=== PATIENT | male | born 1950 | race Caucasian/White ===

== ENCOUNTER 2022-09-11 20:05 | Emergency (ER) | payer OTHER, MEDICARE ==
[2022-09-11] MEDS ORDERED: Sodium Chloride 0.9% 10 ML Syringe FLUSH PRN (20:35)
[2022-09-11] MEDS ORDERED: Amoxicillin/Clavulanate K 875-125 MG Tab PO ONE (20:36)
[2022-09-11 21:12] LABS: BASOPHILS PERCENT AUTO 0.4 % (0.3-3.8); BLOOD UREA NITROGEN,BUN 13 mg/dL (7-18); CARBON DIOXIDE,CO2 27 mmol/L (21-32); CHLORIDE,CL 105 mmol/L (100-110); EOSINOPHILS ABSOLUTE AUTO 0.3 x10-3/uL (0.0-0.6); EOSINOPHILS PERCENT AUTO 6.1 % (0.1-6.8); ESTIMATED GFR 79 mL/min (>60); GLUCOSE RANDOM 90 mg/dL (80-116); HEMATOCRIT 41.2 % (38.3-50.1); HEMOGLOBIN 13.9 g/dL (12.9-17.7); LYMPHOCYTES ABSOLUTE AUTO 1.6 x10-3/uL (0.5-4.5); LYMPHOCYTES PERCENT AUTO 27.9 % (15.8-45.3); MEAN CORPUSCULAR HEMOGLOBIN 30.4 pg (27.0-33.3); MEAN CORPUSCULAR HGB CONC 33.8 g/dL (28.7-35.3); MEAN PLATELET VOLUME 7.5 fL (6.7-11.0); MONOCYTES ABSOLUTE AUTO 0.7 x10-3/uL (0.0-1.2); MONOCYTES PERCENT AUTO 12.3 % (5.5-15.2); NEUTROPHILS ABSOLUTE AUTO 3.1 x10-3/uL (1.7-6.9); NEUTROPHILS PERCENT AUTO 53.3 % (40.3-71.8); PLATELET COUNT,PLT 168 x10(3)uL (117-477); POTASSIUM,K 3.4 mmol/L (3.5-5.3); RED BLOOD CELL COUNT 4.57 x10(6)uL (3.90-5.90); RED CELL DISTRIBUTION WIDTH 13.3 % (12.4-15.0); SODIUM,NA 141 mmol/L (135-145); WHITE BLOOD CELL COUNT,WBC 5.7 x10-3/uL (3.2-10.1)
[2022-09-11 21:23] LABS: A/G RATIO 1.1; ALANINE AMINOTRANSFERASE,ALT 25 U/L (12-36); ALBUMIN 3.9 g/dL (3.2-4.6); ALKALINE PHOSPHATASE 88 IU/L (56-112); AMYLASE 21 U/L (25-115); ASPARTATE AMNIOTRANSFERASE,AST 26 IU/L (5-25); BILIRUBIN TOTAL 1.2 mg/dL (0.1-1.3); PROTEIN TOTAL,TP 7.4 g/dL (6.0-8.0)
[2022-09-11 21:30] LABS: APPEARANCE,URINE CLEAR (CLEAR); BILIRUBIN,URINE SMALL (NEGATIVE); COLOR,URINE YELLOW (YELLOW); GLUCOSE,URINE NORMAL (NORMAL); KETONES,URINE 15 mg/dL (NEGATIVE); LEUKOCYTE ESTERASE,URINE NEGATIVE (NEGATIVE); NITRITE,URINE NEGATIVE (NEGATIVE); OCCULT BLOOD,URINE MODERATE (NEGATIVE); PROTEIN,URINE NEGATIVE (NEGATIVE); UROBILINOGEN,URINE 1 mg/dL (NEGATIVE)
[2022-09-11 21:31] LABS: BACTERIA,URINE RARE (NS); MUCUS,URINE MODERATE (NS); RBC,URINE 0-5 (0-5); SQUAMOUS EPITHELIAL CELLS,UR OCCASIONAL (NS,R,O); WBC,URINE 0-5 (0-5)
[2022-09-11] MEDS ORDERED: Iopamidol 755 Mg/ML 100 ML Bottle IV ONE (21:38)
[2022-09-11] MEDS ORDERED: Sodium Chloride 0.9% 1,000 ML IV SCH (21:45)
== END 2022-09-11 23:15 | disposition home or self-care (01) ==
LOC: FB.ED 20:05
DX: S61.451A Open bite of right hand, initial encounter (principal); K40.90 Unilateral inguinal hernia, without obstruction or gangrene, not specified as recurrent; W54.0XXA Bitten by dog, initial encounter
CPT/HCPCS: 36415; 74177; 80053; 81001; 82150; 83690; 85025; 96360; 99284; A9270; J7030; Q9967

== ENCOUNTER 2023-10-23 22:31 | Inpatient (IN) | payer MEDICARE, OTHER ==
[2023-10-23 23:12] LABS: BASOPHILS PERCENT AUTO 0.4 % (0.3-3.8); EOSINOPHILS ABSOLUTE AUTO 0.1 x10-3/uL (0.0-0.6); EOSINOPHILS PERCENT AUTO 0.7 % (0.1-6.8); HEMATOCRIT 45.6 % (38.3-50.1); HEMOGLOBIN 15.4 g/dL (12.9-17.7); LYMPHOCYTES PERCENT AUTO 13.1 % (15.8-45.3); MEAN CORPUSCULAR HEMOGLOBIN 29.8 pg (27.0-33.3); MEAN CORPUSCULAR HGB CONC 33.9 g/dL (28.7-35.3); MEAN CORPUSCULAR VOLUME 88.1 fL (80.8-98.7); MONOCYTES ABSOLUTE AUTO 0.8 x10-3/uL (0.0-1.2); MONOCYTES PERCENT AUTO 10.4 % (5.5-15.2); NEUTROPHILS ABSOLUTE AUTO 5.8 x10-3/uL (1.7-6.9); NEUTROPHILS PERCENT AUTO 75.4 % (40.3-71.8); PLATELET COUNT,PLT 338 x10(3)uL (117-477); RED BLOOD CELL COUNT 5.17 x10(6)uL (3.90-5.90); RED CELL DISTRIBUTION WIDTH 13.8 % (12.4-15.0); WHITE BLOOD CELL COUNT,WBC 7.7 x10-3/uL (3.2-10.1)
[2023-10-23 23:25] LABS: BASE EXCESS VENOUS,POC 7 mmol/L (-2 - 3+); BLOOD UREA NITROGEN,BUN 16 mg/dL (7-18); BUN/CREATININE RATIO 12.3 (9-20); CALCIUM 9.4 mg/dL (8.6-10.2); CARBON DIOXIDE,CO2 33 mmol/L (21-32); CHLORIDE,CL 101 mmol/L (100-110); CREATININE 1.3 mg/dL (0.70-1.30); EST CRCL DRUG DOSING (CG) 46.61 mL/min; ESTIMATED GFR 58 mL/min (>60); GLUCOSE RANDOM 172 mg/dL (80-116); PCO2 VENOUS,POC 64 mmHg (41-51); PH VENOUS,POC 7.35 pH Units (7.32-7.43); SODIUM,NA 140 mmol/L (135-145)
[2023-10-23 23:32] LABS: A/G RATIO 0.5; ALANINE AMINOTRANSFERASE,ALT 20 U/L (12-36); ALBUMIN 2.7 g/dL (3.2-4.6); ALKALINE PHOSPHATASE 91 IU/L (56-112); ASPARTATE AMNIOTRANSFERASE,AST 21 IU/L (5-25); BILIRUBIN TOTAL 0.5 mg/dL (0.1-1.3); MAGNESIUM 2.1 mg/dL (1.8-2.5); PROTEIN TOTAL,TP 7.9 g/dL (6.0-8.0)
[2023-10-23] MEDS: methylPREDNISolone Sodium Succinate 125 MG/2 ML SDV IVPUSH ONE (23:35)
[2023-10-23] MEDS: Sodium Chloride 0.9% 10 ML Syringe FLUSH PRN (23:36)
[2023-10-23] MEDS: Albuterol 0.083% 2.5 MG/3 ML Neb Soln NEB ONE (23:36)
[2023-10-23] MEDS: Albuterol/Ipratropium 3.0-0.5 MG/3 ML Neb Soln NEB ONE (23:36)
[2023-10-23 23:37] LABS: TROPONIN I 6.6 pg/mL (4.0-60.3)
[2023-10-24] MEDS: Sodium Chloride 0.9% 500 ML IV ONE (00:32)
[2023-10-24] MEDS: Iopamidol 755 Mg/ML 100 ML Bottle IV SCH (01:21)
[2023-10-24] MEDS ORDERED: Acetaminophen 325 MG Tab PO PRN (03:57)
[2023-10-24] MEDS ORDERED: Ondansetron 4 MG/2 ML SDV IV PRN (03:57)
[2023-10-24] MEDS ORDERED: Albuterol 0.083% 2.5 MG/3 ML Neb Soln NEB PRN (03:57)
[2023-10-24] MEDS: Sodium Chloride 0.9% 1,000 ML IV SCH (04:28)
[2023-10-24] MEDS: Doxycycline 100 MG in Sodium Chloride 0.9% 100 ML IV SCH (04:30)
[2023-10-24] MEDS: cefTRIAXone 2 GM Vial IVPUSH SCH (04:47)
[2023-10-24] MEDS: Pantoprazole 40 MG Vial IVPUSH SCH (04:49)
[2023-10-24] MEDS: Enoxaparin 40 MG/0.4 ML Syringe SUBCUT SCH (04:50)
[2023-10-24] MEDS: Albuterol/Ipratropium 3.0-0.5 MG/3 ML Neb Soln NEB SCH (06:05)
[2023-10-24 06:53] LABS: HEMATOCRIT 41.9 % (38.3-50.1); HEMOGLOBIN 14.2 g/dL (12.9-17.7); MEAN CORPUSCULAR HEMOGLOBIN 29.8 pg (27.0-33.3); MEAN CORPUSCULAR HGB CONC 33.8 g/dL (28.7-35.3); MEAN CORPUSCULAR VOLUME 88.1 fL (80.8-98.7); PLATELET COUNT,PLT 307 x10(3)uL (117-477); RED BLOOD CELL COUNT 4.76 x10(6)uL (3.90-5.90); RED CELL DISTRIBUTION WIDTH 13.9 % (12.4-15.0); WHITE BLOOD CELL COUNT,WBC 7.6 x10-3/uL (3.2-10.1)
[2023-10-24 06:58] LABS: BLOOD UREA NITROGEN,BUN 15 mg/dL (7-18); CALCIUM 9.1 mg/dL (8.6-10.2); CARBON DIOXIDE,CO2 31 mmol/L (21-32); CHLORIDE,CL 103 mmol/L (100-110); EST CRCL DRUG DOSING (CG) 57.41 mL/min; ESTIMATED GFR 79 mL/min (>60); GLUCOSE RANDOM 146 mg/dL (80-116); POTASSIUM,K 4.2 mmol/L (3.5-5.3); SODIUM,NA 140 mmol/L (135-145)
[2023-10-24 07:25] LABS: BAND PERCENT MAN 2 % (0-6); LYMPHOCYTES PERCENT MAN 5 % (13-37); MONOCYTES PERCENT MAN 1 % (4-12); SEG NEUTROPHILS PERCENT MAN 92 % (46-82)
[2023-10-24] MEDS: SALMETEROL INH SCH (10:50)
[2023-10-24] MEDS: FLUTICASONE INH SCH (10:50)
[2023-10-24] MEDS: methylPREDNISolone Sodium Succinate 40 MG/1 ML SDV IVPUSH SCH (11:25)
[2023-10-24 14:45] LABS: BASE EXCESS VENOUS,POC 7 mmol/L (-2 - 3+); PCO2 VENOUS,POC 64 mmHg (41-51); PH VENOUS,POC 7.35 pH Units (7.32-7.43)
[2023-10-24] MEDS: Doxycycline 100 MG Tab PO SCH (15:52)
[2023-10-25] MEDS: Ampicillin/Sulbactam Na 3 GM in Sodium Chloride 0.9% 100 ML IV SCH (05:34)
[2023-10-25] MEDS: Amoxicillin/Clavulanate K 875-125 MG Tab PO SCH (09:48)
[2023-10-26 07:09] LABS: BLOOD UREA NITROGEN,BUN 23 mg/dL (7-18); BUN/CREATININE RATIO 20.9 (9-20); CARBON DIOXIDE,CO2 31 mmol/L (21-32); CHLORIDE,CL 105 mmol/L (100-110); CREATININE 1.1 mg/dL (0.70-1.30); EST CRCL DRUG DOSING (CG) 53.72 mL/min; ESTIMATED GFR 70 mL/min (>60); GLUCOSE RANDOM 78 mg/dL (80-116); POTASSIUM,K 4.5 mmol/L (3.5-5.3); SODIUM,NA 141 mmol/L (135-145)
[2023-10-26] MEDS: predniSONE 20 MG Tab PO SCH (08:46)
[2023-10-27] MEDS ORDERED: Enoxaparin 40 MG/0.4 ML Syringe SUBCUT SCH (08:00)
== END 2023-10-26 11:47 | disposition home or self-care (01) | DRG 193 ==
LOC: FB.ED 22:31 → FB.MS 10-24 03:02 → FB.ED 10-24 03:40
PROVIDERS: ADMIT Emergency Medicine; ATTEND Family Medicine
DX: J18.0 Bronchopneumonia, unspecified organism (principal); J96.01 Acute respiratory failure with hypoxia; J96.02 Acute respiratory failure with hypercapnia; J44.1 Chronic obstructive pulmonary disease with (acute) exacerbation; N17.9 Acute kidney failure, unspecified; J44.0 Chronic obstructive pulmonary disease with (acute) lower respiratory infection; Z66 Do not resuscitate; E78.00 Pure hypercholesterolemia, unspecified; H91.90 Unspecified hearing loss, unspecified ear; M19.90 Unspecified osteoarthritis, unspecified site; J43.9 Emphysema, unspecified; E86.0 Dehydration; R63.4 Abnormal weight loss; Z86.16 Personal history of COVID-19; Z88.0 Allergy status to penicillin; Z90.49 Acquired absence of other specified parts of digestive tract; Z98.890 Other specified postprocedural states; Z87.891 Personal history of nicotine dependence
CPT/HCPCS: 36415; 71046; 71275; 80053; 83735; 83880; 84484; 85025; 85379; 86140; 87040 ×2; 93005; 94640; 96374; 99285; J2919; J3490; J7040; Q9967; U0002; 80048; 82947; 94150; 99222; 99232; 99238; A9270-GY; J0295; J0696; J1650; J2470; J7030; J7512; J7620